=== PATIENT | male | born 1980 | race Caucasian/White ===

== ENCOUNTER 2017-03-13 18:36 | Emergency (ER) | payer OTHER ==
[~2017-03-13] VITALS: Ht 175.3 cm; Wt 86.4 kg
[2017-03-13] MEDS ORDERED: CYAN100092 PO (18:48)
[2017-03-13] MEDS ORDERED: GLUC-147 PO (18:48)
[2017-03-13 22:40] VITALS: BP 127/69
== END 2017-03-13 23:08 | disposition home or self-care (01) ==
LOC: EDBD 18:36 → EMS 18:36
DX: F07.81 Postconcussional syndrome (principal); F17.210 Nicotine dependence, cigarettes, uncomplicated; W20.8XXA Other cause of strike by thrown, projected or falling object, initial encounter; Y93.89 Activity, other specified; Y92.89 Other specified places as the place of occurrence of the external cause; Y99.0 Civilian activity done for income or pay
CPT/HCPCS: 70450; 99284